=== PATIENT | female | born 1995 | race Caucasian/White ===

== ENCOUNTER 2018-07-09 16:12 | Inpatient (IN) | payer OTHER ==
[~2018-07-09 16:12] MED LIST: Dexamethasone 20 MG/5 ML VIAL ONE; Lidocaine 1% PF 5 ML VIAL ONE; Ondansetron HCl/PF 4 MG/2 ML Vial ONE; PHENYLEPHRINE-NS 100 MCG/ML 10 ML SYRINGE ONE; PROPOFOL 200 MG/20 ML VIAL ONE; Succinylcholine Chloride 20 MG/ML 10 ml SYRINGE FS ONE; ePHEDrine/0.9% NaCl/PF SYRINGE 50 mg/10 ml ONE
[2018-07-09] MEDS ORDERED: Promethazine HCl 25 MG/ML VIAL ONE (17:14)
[2018-07-09] MEDS ORDERED: Morphine 4 MG/ML VIAL ONE (17:15)
[2018-07-09] MEDS ORDERED: Morphine 10 MG/ML VIAL ONE (17:48)
[2018-07-09] MEDS ORDERED: Ketorolac Tromethamine 30 MG/ML VIAL ONE (17:48)
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
[2018-07-09] MEDS ORDERED: Adacel (T-DAP) 0.5 ML VIAL ONE (18:57)
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
[2018-07-09] MEDS ORDERED: CEFAZOLIN 1 GM VIAL ONE (19:04)
[2018-07-09] MEDS ORDERED: Midazolam HCl 2 mg/2 ml Vial ONE ×3 (19:04→19:26)
[2018-07-09] MEDS ORDERED: Fentanyl 100 MCG/2 ML VIAL ONE ×3 (19:04→19:26)
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
[2018-07-09] MEDS ORDERED: Lidocaine 2% Jelly 5 ML TUBE ONE (19:32)
[2018-07-09 19:37] LABS: #Basophils 0.1 thou/uL (0.0-0.2); #Lymphocytes 1.2 thou/uL (1.20-3.40); #Monocytes 0.9 thou/uL (0.11-0.59); #Neutrophils 12.9 thou/uL (1.40-6.50); %Basophils 0.3 % (0.0-1.0); %Eosinophils 0.1 % (0.0-10.0); %Lymphocytes 7.9 % (21.0-51.0); %Monocytes 6.1 % (0.0-10.0); %Neutrophils 85.6 % (42.0-75.0); Hemoglobin 11.7 g/dL (12.0-16.0); Mean Corpuscular HGB CONC 33.9 g/dL (32.0-36.0); Mean Corpuscular Hemoglobin 31.8 pg (27.0-31.0); Mean Corpuscular Volume 93.8 fL (78.0-98.0); Mean Platelet Volume 7.1 fL (7.4-10.4); Platelet Count 295 thou/uL (130-400); RBC Distribution Width 11.4 % (11.5-14.5); Red Blood Cell (RBC) Count 3.68 mill/uL (4.20-5.40); White Blood Cell (WBC) Count 15.1 thou/uL (4.8-10.8)
[2018-07-09 19:43] LABS: PTT 25.9 SEC (22.9-36.1); Prothrombin Time 13.7 SEC (12.0-14.7)
[2018-07-09 19:51] LABS: BHCG - Serum Negative (NEGATIVE); Pregs Control Background? CLEAR/WHITE (CLR/WHITE); Pregs Control Bar Appear? YES (CONTROL BAR)
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
[2018-07-09 19:56] LABS: Anion Gap 15 mmol/L (10-20); BUN (Urea Nitrogen) 12 mg/dL (7.0-18.7); Calc. Creatinine Clearance 0 mL/min (70-130); Calcium 8.6 mg/dL (7.8-10.44); Carbon Dioxide 18 mmol/L (22-29); Chloride 110 mmol/L (98-107); Estimated GFR-MDRD Greater than 90; Glucose 98 mg/dL (70-105); Magnesium 2.1 mg/dL (1.6-2.6); Phosphorus 2.1 mg/dL (2.3-4.7); Potassium 3.6 mmol/L (3.5-5.1); Sodium 139 mmol/L (136-145)
[2018-07-09] MEDS ORDERED: Dextrose 50% Abboject 50 ML SYRINGE SLOW IVP PRN (19:58)
[2018-07-09] MEDS ORDERED: Dextrose 5% in Water 1,000 ML IV PRN (19:58)
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
[2018-07-09] MEDS ORDERED: PHENYLEPHRINE-NS 100 MCG/ML 10 ML SYRINGE ONE (21:03)
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
[2018-07-09] MEDS ORDERED: Promethazine HCl 25 MG/ML VIAL SLOW IVP PRN (21:43)
[2018-07-09] MEDS ORDERED: HYDROmorphone 2 MG/ML VIAL SLOW IVP PRN (21:43)
[2018-07-09] MEDS ORDERED: Promethazine HCl 25 MG/ML VIAL IM PRN (21:43)
[2018-07-09] MEDS ORDERED: Ondansetron HCl/PF 4 MG/2 ML Vial IVP PRN (21:43)
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
--- NOTE | 2018-07-09 22:36 | RAD ---
AP PELVIS: 07/09/18 HISTORY: Post reduction. The left hip dislocation has been reduced on this film. On this single view, it appears to be in fair ly good position. IMPRESSION: Reduction of left hip dislocation. POS: [facility]
--- NOTE | 2018-07-09 22:56 | RAD ---
LEFT HIP TWO VIEWS: 07/09/18 HISTORY: Intraoperative films. These show reduction of a hip dislocation. The femoral head appears to be in satisfactory position. T here is a fragment of the acetabulum seen to be displaced on these views. IMPRESSION: Hip reduction. POS: [facility]
[2018-07-09] MEDS ORDERED: Meperidine HCl/PF 25 MG/ML VIAL ONE (22:59)
[2018-07-09] MEDS: Sodium Chloride 0.9% 1,000 ML IV SCH (23:56)
[2018-07-09] MEDS: traMADol HCl 50 MG TAB PO SCH (23:57)
[2018-07-09] MEDS: Acetaminophen 325 MG TAB PO SCH (23:57)
[2018-07-09] MEDS: Gabapentin 100 MG CAP PO SCH (23:57)
[2018-07-09] MEDS: Ketorolac Tromethamine 30 MG/ML VIAL IVP SCH (23:58)
[2018-07-10] MEDS: Senokot S 8.6-50 MG TAB PO SCH ×3 (01:11→21:50)
[2018-07-10 01:55] VITALS: BMI 25.0
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
[2018-07-10] MEDS: Acetaminophen 325 MG TAB PO SCH ×4 (02:47→20:27)
[2018-07-10] MEDS: traMADol HCl 50 MG TAB PO SCH ×4 (02:47→20:27)
[2018-07-10] MEDS: CEFAZOLIN/Water 2 GM/20 ML SYRINGE SLOW IVP SCH ×3 (02:47→20:26)
[2018-07-10] MEDS: HYDROcodone/Acetaminophen 7.5/325 mg Tablet PO PRN ×2 (02:55→20:26)
[2018-07-10] MEDS: Ketorolac Tromethamine 30 MG/ML VIAL IVP SCH ×3 (05:25→18:47)
[2018-07-10 06:04] LABS: #Lymphocytes 0.9 thou/uL (1.20-3.40); #Monocytes 0.6 thou/uL (0.11-0.59); #Neutrophils 8.3 thou/uL (1.40-6.50); %Eosinophils 0.1 % (0.0-10.0); %Lymphocytes 9.4 % (21.0-51.0); %Monocytes 5.7 % (0.0-10.0); %Neutrophils 84.8 % (42.0-75.0); Hemoglobin 10.2 g/dL (12.0-16.0); Mean Corpuscular HGB CONC 33.3 g/dL (32.0-36.0); Mean Corpuscular Hemoglobin 31.1 pg (27.0-31.0); Mean Corpuscular Volume 93.4 fL (78.0-98.0); Mean Platelet Volume 7.1 fL (7.4-10.4); Platelet Count 266 thou/uL (130-400); RBC Distribution Width 11.3 % (11.5-14.5); Red Blood Cell (RBC) Count 3.29 mill/uL (4.20-5.40); White Blood Cell (WBC) Count 9.8 thou/uL (4.8-10.8)
[2018-07-10 06:07] LABS: Anion Gap 8 mmol/L (10-20); BUN (Urea Nitrogen) 7 mg/dL (7.0-18.7); Calc. Creatinine Clearance 141 mL/min (70-130); Calcium 7.4 mg/dL (7.8-10.44); Carbon Dioxide 23 mmol/L (22-29); Chloride 107 mmol/L (98-107); Estimated GFR-MDRD Greater than 90; Glucose 131 mg/dL (70-105); Magnesium 1.8 mg/dL (1.6-2.6); Phosphorus 3.1 mg/dL (2.3-4.7); Potassium 3.7 mmol/L (3.5-5.1); Sodium 134 mmol/L (136-145)
[2018-07-10] MEDS: Sodium Chloride 0.9% 1,000 ML IV SCH (06:22)
[2018-07-10] MEDS: Gabapentin 100 MG CAP PO SCH ×3 (08:18→20:27)
[2018-07-10] MEDS: Polyethylene Glycol 3350 17 GM Packet PO SCH (08:19)
[2018-07-10] MEDS: Enoxaparin Sodium 40 MG/0.4 ML SYRINGE SC SCH (08:32)
[2018-07-10] MEDS ORDERED: Venlafaxine XR 37.5 MG CAP PO SCH (13:00)
[2018-07-10] MEDS: Lactated Ringer's 1,000 ML IV SCH ×2 (15:12→23:55)
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
[2018-07-11] MEDS: Ketorolac Tromethamine 30 MG/ML VIAL IVP SCH ×4 (00:29→17:45)
[2018-07-11] MEDS: CEFAZOLIN/Water 2 GM/20 ML SYRINGE SLOW IVP SCH ×4 (02:58→21:59)
[2018-07-11] MEDS: traMADol HCl 50 MG TAB PO SCH ×4 (02:59→22:00)
[2018-07-11] MEDS: Acetaminophen 325 MG TAB PO SCH ×4 (02:59→22:00)
[2018-07-11] MEDS: Lactated Ringer's 1,000 ML IV SCH (09:15)
[2018-07-11] MEDS: Venlafaxine XR 37.5 MG CAP PO SCH (09:16)
[2018-07-11] MEDS: Senokot S 8.6-50 MG TAB PO SCH ×2 (09:17→22:00)
[2018-07-11] MEDS: Gabapentin 100 MG CAP PO SCH ×3 (09:17→22:00)
[2018-07-11] MEDS: Polyethylene Glycol 3350 17 GM Packet PO SCH ×2 (09:19→09:20)
[2018-07-11] MEDS: Enoxaparin Sodium 40 MG/0.4 ML SYRINGE SC SCH (09:19)
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
[2018-07-11] MEDS ORDERED: CEFAZOLIN/Water 2 GM/20 ML SYRINGE SLOW IVP SCH (12:00)
[2018-07-11] MEDS ORDERED: Ketorolac Tromethamine 30 MG/ML VIAL ONE (12:51)
[2018-07-11] MEDS ORDERED: Metoclopramide HCl 10 MG/2 ML VIAL ONE (12:51)
[2018-07-11] MEDS ORDERED: PROPOFOL 200 MG/20 ML VIAL ONE (12:51)
[2018-07-11] MEDS ORDERED: Lidocaine 1% PF 5 ML VIAL ONE (12:51)
[2018-07-11] MEDS ORDERED: Ondansetron HCl/PF 4 MG/2 ML Vial ONE (12:51)
[2018-07-11] MEDS ORDERED: diphenhydrAMINE 50 MG/ML VIAL ONE (12:51)
[2018-07-11] MEDS ORDERED: Dexamethasone 20 MG/5 ML VIAL ONE (12:51)
[2018-07-11] MEDS ORDERED: Glycopyrrolate 0.2 MG/ML 5 ML SYRINGE ONE (12:51)
[2018-07-11] MEDS ORDERED: PHENYLEPHRINE-NS 100 MCG/ML 10 ML SYRINGE ONE ×2 (12:51→19:30)
[2018-07-11] MEDS ORDERED: CEFAZOLIN/Water 2 GM/20 ML SYRINGE ONE (15:06)
[2018-07-11] MEDS ORDERED: Fentanyl 100 MCG/2 ML VIAL ONE ×2 (16:05→20:21)
[2018-07-11] MEDS ORDERED: Midazolam HCl 2 mg/2 ml Vial ONE ×2 (16:33→16:42)
[2018-07-11] MEDS ORDERED: Fentanyl 250 MCG/5 ML VIAL ONE (16:42)
[2018-07-11] MEDS ORDERED: Bupivacaine HCl 0.5%/Epinephrine 1:200,000/PF 30 ml Vial ONE (19:33)
[2018-07-11] MEDS ORDERED: HYDROmorphone 0.5 MG/0.5 ML SYRINGE ONE (19:49)
[2018-07-11] MEDS ORDERED: HYDROmorphone 2 MG/ML VIAL SLOW IVP PRN (20:11)
[2018-07-11] MEDS ORDERED: Morphine Sulfate 2 MG/ML SYRINGE SLOW IVP PRN (20:11)
[2018-07-11] MEDS ORDERED: Ondansetron HCl/PF 4 MG/2 ML Vial IVP PRN (20:11)
--- NOTE | 2018-07-11 20:52 | RAD ---
INTRAOPERATIVE FLUOROSCOPY: HISTORY: Acetabular fracture repair. COMPARISON: None. EXPOSURE: 11.9 seconds 2.26 mGy FINDINGS: Three fluoroscopic views demonstrate internal fixation hardware traversing an acetabular fracture. IMPRESSION: Fluoroscopy as above. POS: PPP
--- NOTE | 2018-07-11 20:55 | RAD ---
RIGHT ANKLE THREE VIEWS: HISTORY: Fracture. ORIF. TECHNIQUE: Intraoperative fluoroscopy. EXPOSURE: 5.6 seconds 0.13 mGy FINDINGS: There are two screws traversing the medial malleolus. Alignment is anatomic. IMPRESSION: Fluoroscopy, as above. POS: PPP
[2018-07-12] MEDS: Ketorolac Tromethamine 30 MG/ML VIAL IVP SCH ×5 (00:02→23:52)
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
[2018-07-12] MEDS: traMADol HCl 50 MG TAB PO SCH ×4 (03:57→21:23)
[2018-07-12] MEDS: Acetaminophen 325 MG TAB PO SCH ×4 (03:57→21:20)
[2018-07-12 05:37] LABS: #Lymphocytes 0.9 thou/uL (1.20-3.40); #Monocytes 0.5 thou/uL (0.11-0.59); %Eosinophils 0.1 % (0.0-10.0); %Lymphocytes 10.4 % (21.0-51.0); %Monocytes 5.9 % (0.0-10.0); %Neutrophils 83.6 % (42.0-75.0); Hemoglobin 8.5 g/dL (12.0-16.0); Mean Corpuscular HGB CONC 34.9 g/dL (32.0-36.0); Mean Corpuscular Hemoglobin 32.8 pg (27.0-31.0); Mean Platelet Volume 7.1 fL (7.4-10.4); Platelet Count 231 thou/uL (130-400); RBC Distribution Width 11.1 % (11.5-14.5); Red Blood Cell (RBC) Count 2.58 mill/uL (4.20-5.40); White Blood Cell (WBC) Count 8.3 thou/uL (4.8-10.8)
[2018-07-12 06:00] LABS: Anion Gap 10 mmol/L (10-20); BUN (Urea Nitrogen) 6 mg/dL (7.0-18.7); Calc. Creatinine Clearance 158 mL/min (70-130); Carbon Dioxide 25 mmol/L (22-29); Chloride 106 mmol/L (98-107); Estimated GFR-MDRD Greater than 90; Glucose 112 mg/dL (70-105); Magnesium 1.8 mg/dL (1.6-2.6); Phosphorus 3.8 mg/dL (2.3-4.7); Potassium 4.1 mmol/L (3.5-5.1); Sodium 137 mmol/L (136-145)
[2018-07-12] MEDS: CEFAZOLIN/Water 2 GM/20 ML SYRINGE SLOW IVP SCH (06:53)
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
[2018-07-12] MEDS: Polyethylene Glycol 3350 17 GM Packet PO SCH (08:17)
[2018-07-12] MEDS: Senokot S 8.6-50 MG TAB PO SCH ×2 (08:17→21:23)
[2018-07-12] MEDS: Gabapentin 100 MG CAP PO SCH ×3 (08:18→21:23)
[2018-07-12] MEDS: Venlafaxine XR 37.5 MG CAP PO SCH (08:20)
[2018-07-12] MEDS: Enoxaparin Sodium 40 MG/0.4 ML SYRINGE SC SCH (09:47)
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
[2018-07-12] MEDS: Ferrous Sulfate 325 MG TAB PO SCH (17:23)
[2018-07-13] MEDS: traMADol HCl 50 MG TAB PO SCH ×4 (02:55→20:24)
[2018-07-13] MEDS: Acetaminophen 325 MG TAB PO SCH ×4 (02:55→20:25)
[2018-07-13 05:10] LABS: #Eosinphils 0.2 thou/uL (0.0-0.7); #Lymphocytes 1.6 thou/uL (1.20-3.40); #Monocytes 0.5 thou/uL (0.11-0.59); #Neutrophils 3.4 thou/uL (1.40-6.50); %Basophils 0.5 % (0.0-1.0); %Eosinophils 3.1 % (0.0-10.0); %Lymphocytes 27.4 % (21.0-51.0); %Monocytes 9.4 % (0.0-10.0); %Neutrophils 59.6 % (42.0-75.0); Hemoglobin 7.5 g/dL (12.0-16.0); Mean Corpuscular HGB CONC 34.7 g/dL (32.0-36.0); Mean Corpuscular Hemoglobin 32.9 pg (27.0-31.0); Mean Corpuscular Volume 94.9 fL (78.0-98.0); Mean Platelet Volume 6.9 fL (7.4-10.4); Platelet Count 222 thou/uL (130-400); RBC Distribution Width 11.2 % (11.5-14.5); Red Blood Cell (RBC) Count 2.29 mill/uL (4.20-5.40); White Blood Cell (WBC) Count 5.7 thou/uL (4.8-10.8)
[2018-07-13] MEDS: Ketorolac Tromethamine 30 MG/ML VIAL IVP SCH ×3 (06:02→16:54)
[2018-07-13] MEDS ORDERED: Ibuprofen 800 MG TAB PO SCH (08:15)
[2018-07-13] MEDS ORDERED: Magnesium Citrate 300 ML BOT PO SCH (08:15)
[2018-07-13] MEDS: Gabapentin 100 MG CAP PO SCH ×3 (08:16→20:24)
[2018-07-13] MEDS: Polyethylene Glycol 3350 17 GM Packet PO SCH (08:18)
[2018-07-13] MEDS: Senokot S 8.6-50 MG TAB PO SCH ×2 (08:18→20:25)
[2018-07-13] MEDS: Ascorbic Acid 500 mg Chewable Tablet PO SCH (08:19)
[2018-07-13] MEDS: Ferrous Sulfate 325 MG TAB PO SCH ×2 (08:19→16:54)
[2018-07-13] MEDS: Venlafaxine XR 37.5 MG CAP PO SCH (08:20)
[2018-07-13] MEDS: Enoxaparin Sodium 40 MG/0.4 ML SYRINGE SC SCH (08:20)
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
[2018-07-14] MEDS: Ketorolac Tromethamine 30 MG/ML VIAL IVP SCH ×2 (01:19→07:00)
[2018-07-14] MEDS: traMADol HCl 50 MG TAB PO SCH ×4 (03:41→20:13)
[2018-07-14] MEDS: Acetaminophen 325 MG TAB PO SCH ×4 (03:41→20:12)
[2018-07-14 06:00] LABS: #Eosinphils 0.2 thou/uL (0.0-0.7); #Lymphocytes 1.6 thou/uL (1.20-3.40); #Monocytes 0.5 thou/uL (0.11-0.59); #Neutrophils 4.8 thou/uL (1.40-6.50); %Basophils 0.2 % (0.0-1.0); %Eosinophils 2.3 % (0.0-10.0); %Lymphocytes 22.8 % (21.0-51.0); %Monocytes 7.1 % (0.0-10.0); %Neutrophils 67.7 % (42.0-75.0); Hemoglobin 7.5 g/dL (12.0-16.0); Mean Corpuscular HGB CONC 33.9 g/dL (32.0-36.0); Mean Corpuscular Hemoglobin 32.3 pg (27.0-31.0); Mean Corpuscular Volume 95.3 fL (78.0-98.0); Mean Platelet Volume 6.7 fL (7.4-10.4); Platelet Count 262 thou/uL (130-400); RBC Distribution Width 11.3 % (11.5-14.5); Red Blood Cell (RBC) Count 2.31 mill/uL (4.20-5.40)
[2018-07-14] MEDS: Ferrous Sulfate 325 MG TAB PO SCH ×2 (08:24→17:12)
[2018-07-14] MEDS: Ascorbic Acid 500 mg Chewable Tablet PO SCH ×3 (08:24→20:12)
[2018-07-14] MEDS: Gabapentin 100 MG CAP PO SCH ×3 (08:25→20:12)
[2018-07-14] MEDS: Venlafaxine XR 37.5 MG CAP PO SCH (08:25)
[2018-07-14] MEDS: Enoxaparin Sodium 40 MG/0.4 ML SYRINGE SC SCH (08:26)
[2018-07-14] MEDS: Senokot S 8.6-50 MG TAB PO SCH ×2 (08:34→20:14)
[2018-07-14] MEDS: Polyethylene Glycol 3350 17 GM Packet PO SCH (08:34)
[2018-07-14] MEDS: Famotidine 20 MG TAB PO SCH ×2 (09:51→20:12)
[2018-07-14] MEDS ORDERED: Acetaminophen/Codeine 30-300mg Tablet PO PRN (12:59)
[2018-07-14] MEDS: Acetaminophen/Codeine 30-300mg Tablet PO PRN ×2 (13:33→17:52)
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
--- NOTE | 2018-07-15 01:14 | CON ---
DATE OF CONSULTATION: 07/14/2018 HISTORY OF PRESENT ILLNESS: Ms. Evans is a pleasant 22-year-old female that sustained a left posterior acetabular fracture dislocation of the medial malleolus, then an open knee joint with odd rocío avulsion with portion of the quadriceps and the medial retinaculum as well as a lateral retinaculum that were lacerated. I washed out the patient's knee on Wednesday and primary repaired and closed the knee joint. Dr. Mejia did a posterior wall fixation medial malleolus fixation on Wednesday. The patient is currently in the hospital. She is resting comfortably. Her pain has alleviated, she otherwise is in no acute pain today, afebrile. PHYSICAL EXAMINATION: GENERAL: No acute distress. EXTREMITIES: Left knee: The patient did a ligament exam. The patient has may be 1+ but otherwise stable valgus. She has physiologic varus laxity. She has no significant anterior, posterior Abel's or posterior drawer. The patient was guarding during her exam. IMPRESSION: Left knee open patella fracture status post repair with possible MCL sprain. ASSESSMENT AND PLAN: The patient's knee began range of motion about 10-14 days to improve ROM. She may need a MRI in the future. The patient will perform this once cleared by Dr. Mejia. Begin range of motion. The patient likely be transferred to rehab, but she will follow up with us here for continued orthopedic care. TANYA
[2018-07-15] MEDS: Acetaminophen 325 MG TAB PO SCH ×2 (03:14→09:27)
[2018-07-15] MEDS: traMADol HCl 50 MG TAB PO SCH ×2 (03:14→09:29)
[2018-07-15 08:23] VITALS: TEMP 98.2
--- NOTE | 2018-07-15 08:53 | RAD ---
LEFT ANKLE THREE VIEWS: History: Left ankle injury. FINDINGS: Ankle mortise and talar dome are intact. Soft tissue swelling over the lateral aspect of the ankle. N o acute fracture, dislocation, or aggressive osseous erosions. IMPRESSION: Soft tissue swelling. No acute osseous abnormalities are demonstrated. POS: LEXY
[2018-07-15] MEDS: Ferrous Sulfate 325 MG TAB PO SCH (09:27)
[2018-07-15] MEDS: Gabapentin 100 MG CAP PO SCH (09:28)
[2018-07-15] MEDS: Senokot S 8.6-50 MG TAB PO SCH (09:28)
[2018-07-15] MEDS: Famotidine 20 MG TAB PO SCH (09:28)
[2018-07-15] MEDS: Polyethylene Glycol 3350 17 GM Packet PO SCH (09:29)
[2018-07-15] MEDS: Enoxaparin Sodium 40 MG/0.4 ML SYRINGE SC SCH (09:30)
[2018-07-15] MEDS: Ascorbic Acid 500 mg Chewable Tablet PO SCH (09:31)
[2018-07-15] MEDS: Venlafaxine XR 37.5 MG CAP PO SCH (09:39)
[2018-07-15 12:18] VITALS: BP 106/71
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
== END 2018-07-15 10:53 | DRG 493 ==
LOC: ERS 16:12 → SURG A 20:01 → SURG B 21:27
PROVIDERS: ADMIT Orthopaedic Surgery; ATTEND Orthopaedic Surgery
PROC: 0QSF04Z Reposition Left Patella with Internal Fixation Device, Open Approach (ICD-10-PCS; principal; 2018-07-09)
PROC: 0LQR0ZZ Repair Left Knee Tendon, Open Approach (ICD-10-PCS; 2018-07-09)
PROC: 0QS5XZZ Reposition Left Acetabulum, External Approach (ICD-10-PCS; 2018-07-09)
PROC: 2W3LX1Z Immobilization of Right Lower Extremity using Splint (ICD-10-PCS; 2018-07-09)
PROC: 0QSG04Z Reposition Right Tibia with Internal Fixation Device, Open Approach (ICD-10-PCS; 2018-07-11)
PROC: 0QS504Z Reposition Left Acetabulum with Internal Fixation Device, Open Approach (ICD-10-PCS; 2018-07-11)
DX: S32.462A Displaced associated transverse-posterior fracture of left acetabulum, initial encounter for closed fracture (principal); S82.092B Other fracture of left patella, initial encounter for open fracture type I or II; S82.51XA Displaced fracture of medial malleolus of right tibia, initial encounter for closed fracture; S76.112A Strain of left quadriceps muscle, fascia and tendon, initial encounter; D50.0 Iron deficiency anemia secondary to blood loss (chronic); R33.8 Other retention of urine; F41.8 Other specified anxiety disorders; V43.52XA Car driver injured in collision with other type car in traffic accident, initial encounter; Y92.410 Unspecified street and highway as the place of occurrence of the external cause
CPT/HCPCS: 36415; 70450; 71045; 71260; 72125; 72170; 74177; 76001; 80048; 83735; 84100; 84703; 85025; 85610; 85730; 86850; 86900; 86901; 90715; A4216; C1713; G0390; G8978-GP-CM; G8979-GP-CJ; G8987-GO-CL; G8988-GO-CI; J0670; J0690; J1100; J1170; J1200; J1650; J1885; J2001; J2175; J2250; J2270; J2405; J2550; J2704; J2765; J3010